=== PATIENT | female | born 1960 | race Caucasian/White ===

== ENCOUNTER 2024-02-20 08:09 | Outpatient (CLI) | payer BC | END 2024-02-20 08:10 | disposition home or self-care (01) | LOC: CSHSLEEP 08:09 | PROVIDERS: ATTEND Family Medicine | DX: G47.33 Obstructive sleep apnea (adult) (pediatric) (principal); R53.83 Other fatigue; R06.83 Snoring | CPT/HCPCS: 95800 ==